=== PATIENT | female | born 1965 | race Two or more races ===

== ENCOUNTER 2023-04-17 06:05 | Day surgery (SDC) | payer OTHER | END 2023-04-17 18:20 | disposition home or self-care (01) | LOC: CIR.AMB 06:05 | PROVIDERS: ATTEND Obstetrics & Gynecology Gynecologic Oncology | DX: N85.8 Other specified noninflammatory disorders of uterus (principal); N92.6 Irregular menstruation, unspecified; Z20.822 Contact with and (suspected) exposure to COVID-19; I10 Essential (primary) hypertension; R97.1 Elevated cancer antigen 125 [CA 125] ==